=== PATIENT | female | born 1975 | race Caucasian/White ===

== ENCOUNTER → 2018-08-29 | Outpatient (REF) | payer OTHER ==
[~2018-08-29] MED LIST: OND4 PO; PREN-127 PO
== END ==
LOC: ZZSTITCHES 13:16
PROVIDERS: ATTEND Physician Assistant
DX: N39.0 Urinary tract infection, site not specified (principal)
CPT/HCPCS: 87088

== ENCOUNTER → 2018-09-23 | Outpatient (CLI) | payer OTHER | LOC: LAB 14:49 | PROVIDERS: ATTEND Surgery | DX: L81.4 Other melanin hyperpigmentation (principal) | CPT/HCPCS: 88305 ==